=== PATIENT | female | born 1985 | race Two or more races ===

== ENCOUNTER 2024-08-24 18:31 | Emergency (ER) | payer MEDICAID, OTHER ==
[~2024-08-24] VITALS: Ht 154.9 cm; Wt 88.5 kg
[~2024-08-24 18:31] MED LIST: ALCOPAD62 XX; BLOO1KIT60 XX; INSLANTI SC; LANC-347 XX; METF-370 PO
[2024-08-24 19:54] LABS: Basophils # (auto) 0.1 10 ^3/uL (0-0.2); Basophils % (auto) 0.9 % (0.0-2.0); Eosinophils # (auto) 0.2 10 ^3/uL (0-0.8); Eosinophils % (auto) 2.4 % (0.0-7.0); Hematocrit 37.1 % (36.0-46.0); Lymphocytes % (auto) 24.5 % (10.0-50.0); Mean Corpuscular Hemoglobin 29.5 pg (28.0-32.0); Mean Corpuscular Hgb Conc. 35.1 g/dL (32.0-36.0); Mean Corpuscular Volume 84.1 fL (80.0-100.0); Monocytes # (auto) 0.4 10 ^3/uL (0-1.3); Neutrophils # (auto) 5.5 10 ^3/uL (1.6-8.6); Neutrophils % (auto) 67.2 % (37.0-80.0); Platelet Count (auto) 421 10^3/uL (140-450); Red Blood Cells 4.41 10^6/uL (4.0-5.20); Red Cell Distribution Width 12.6 % (11.8-14.3); White Blood Cell 8.2 10^3/uL (4.4-10.8)
[2024-08-24 19:57] LABS: Chloride 99 mmol/L (98-107); Potassium 4.1 mmol/L (3.5-5.1)
[2024-08-24 19:58] LABS: Anion Gap 6 (5-15); Calcium 9.4 mg/dL (8.7-10.4); Carbon Dioxide 27 mmol/L (20-31)
[2024-08-24 20:03] LABS: BUN/Creatinine Ratio 12.3 (10.0-20.0); Blood Urea Nitrogen 16 mg/dL (9-23)
[2024-08-24 20:04] LABS: Lipase 52 U/L (12-53)
[2024-08-24 20:06] LABS: Sodium 132 mmol/L (136-145)
[2024-08-24 20:09] LABS: Glucose 452 mg/dL (74-106)
--- NOTE | 2024-08-24 21:37 | DVH ---
CLINICAL HISTORY: Right-sided flank pain TECHNIQUE: CT of the abdomen and pelvis was performed without intravenous contrast. This exam was per formed according to our departmental dose optimization program. Up-to-date CT equipment and radiation dose reduction techniques are utilized as appropriate. CTDI: 13.24 DLP: 823 WID: COMPARISON: CT CT AB PEL WO CON-NO ORAL OR IV on DOS: 07/18/23 FINDINGS: Lower Thorax: Unremarkable. Liver and Biliary system: Mild hepatomegaly measuring 18 cm craniocaudal. Prior cholecystectomy witho ut biliary ductal dilatation. Spleen: Unremarkable. Adrenal Glands and Kidneys: There is a 2.5 cm left adrenal gland adenoma on series 2, image 33. Norm al right adrenal gland. Unremarkable kidneys apart from a small hypodense lesion in the upper pole le ft kidney not optimally evaluated without contrast. Pancreas and Retroperitoneum: Unremarkable. Aorta and Major Vessels: Aortoiliac vessels are normal in caliber containing mild calcified atheroscl erotic plaque. Bowel, Mesentery and Peritoneal space: Normal appendix. Normal caliber small and large bowel. No free air or fluid collection. Pelvis: Unremarkable. Abdominal wall and Osseous Structures: Tiny sclerotic foci in the proximal femurs and pelvis likely b one islands. No destructive osseous lesion. Mild lower thoracic and lumbar spondylosis. IMPRESSION: 1. No noncontrast evidence of acute abnormality. 2. Mild hepatomegaly. 3. Left adrenal gland adenoma.
--- NOTE | 2024-08-24 21:58 | ED.PDOC ---
General HPI Comments 38y morbidly obese F who presents to the ED for chief complaint of flank pain. Pt states she has been having R sided flank pain for the past 2 days. Pt states the pain is constant, non-radiating, with no associated exacerbating or relieving factors. Pt otherwise denies nausea, vomiting, dysuria, hematuria, fever, chills, or chills. Pt otherwise denies any other symptoms at this time. Pt denies history of kidney stones. Chief Complaint: Flank Pain Time Seen by MD: 21:30 Reviewed notes: Nurses Notes, Medications, Allergies Allergies: Coded Allergies: NO KNOWN ALLERGIES (Unverified , 07/18/23) Home Meds Active Scripts Insulin Glargine (Lantus) 100 Unit/Ml Inj, 15 UNIT SC DAILY for 30 Days, #30 INJ 2 Refills Prov:LIVE GARCIA RESIDENT 07/20/23 Isopropyl Alcohol (Alcohol Pads) 70 % Pad, % XX, #60 TO CLEAN WOUND Prov:LIVE GARCIA RESIDENT 07/20/23 Lancets (Freestyle Lancets) Lancets Mis, % XX BID, #60 ONE LANCET FOR EACH MEASURE Prov:LIVE GARCIA 07/20/23 Blood Glucose Monitoring Suppl (D-Care Glucometer Kit/Glu W/Device) 1 Kit Kit, KIT XX BID, #1 0 Refills BID Prov:LIVE GARCIA RESIDENT 07/20/23 Reported Medications Metformin Hydrochloride (Metformin Hcl) 500 Mg Tab, 500 MG PO IBID for 30 Days, MG 07/18/23 Information Source: Patient Mode of Arrival: Ambulatory Severity: Moderate Inability to void: None Timing: Days Duration: Since onset Prehospital treatment: None Onset: Spontaneous Symptoms: None History of: None Location: (R) Flank Past Medical History PAST MEDICAL HISTORY: Denies Surgical History: Cholecystectomy, [employer] History: Denies all [employer] Hx Family History Family History: Reviewed,noncontributory to illness Social History Smoker: Non-Smoker Alcohol: Denies ETOH Use Drugs: Denies Drug Use Lives In: Home Constitutional: denies: chills, diaphoresis, fatigue, fever, malaise, sweats, weakness, others EENTM: denies: blurred vision, double vision, ear bleeding, ear discharge, ear drainage, ear pain, ear ringing, eye pain, eye redness, hearing loss, mouth pain, mouth swelling, nasal discharge, nose bleeding, nose congestion, nose pain, photophobia, tearing, throat pain, throat swelling, voice changes, others Respiratory: denies: cough, hemoptysis, orthopnea, SOB at rest, shortness of breath, SOB with excertion, stridor, wheezing, others Cardiovascular: denies: chest pain, dizzy spells, diaphoresis, Dyspnea on exertion, edema, irregular heart beat, left arm pain, lightheadedness, palpitations, PND, syncope, others Gastrointestinal: denies: abdomen distended, abdominal pain, blood streaked bowels, constipated, diarrhea, dysphagia, difficulty swallowing, hematemesis, melena, nausea, poor appetite, poor fluid intake, rectal bleeding, rectal pain, vomiting, others Genitourinary: reports: flank pain; denies: abnormal vagina bleeding, burning, dyspareunia, dysuria, frequency, hematuria, incontinence, pain, , vagina discharge, urgency, others Neurological: denies: dizziness, fainting, headache, left sided numbness, left sided weakness, numbness, paresthesia, pre-existing deficit, right sided numbness, right sided weakness, seizure, speech problems, tingling, tremors, weakness, others Musculoskeletal: denies: back pain, gout, joint pain, joint swelling, muscle pain, muscle stiffness, neck pain, others Integumetry: denies: bruises, change in color, change in hair/nails, dryness, laceration, lesions, lumps, rash, wounds, others Allergic/Immunocompromised: denies: Difficulty Healing, Frequent Infections, Hives, Itching, others Hematologic/Lymphatic: denies: anemia, blood clots, easy bleeding, easy bruising, swollen glands, others Endocrine: denies: excessive hunger, excessive sweating, excessive thirst, excessive urination, flushing, intolerance to cold, intolerance to heat, unexplained weight gain, unexplained weight loss, others Psychiatric: denies: anxiety, bipolar disorder, depression, hopeless, panic disorder, schizophrenia, sleepless, suicidal, others All Other Systems: Reviewed and Negative Physical Exam General Appearance: Moderate Distress (Due to right-sided flank pain concerns.), Normal HEENT: Normal ENT Inspection, Pharynx Normal, TMs Normal Neck: Full Range of Motion, Non-Tender, Normal, Normal Inspection Respiratory: Chest Non-Tender, Lungs Clear, No Accessory Muscle Use, No Respiratory Distress, Normal Breath Sounds Cardiovascular: No Edema, No JVD, No Murmur, No Gallop, Normal Peripheral Pulses, Regular Rate/Rhythm Breast Exam: Deferred Gastrointestinal: Other (Mild CVA tenderness appreciated the right flank region. Patient states pain progresses into her abdomen. No signs of trauma. No pulsatile masses.) Genitalia: Deferred Pelvic: Deferred Rectal: Deferred Extremities: No calf tenderness, Normal capillary refill, Normal inspection, Normal range of motion, Non-tender, No pedal edema Neurologic: Alert, No Motor Deficits, Normal Affect, Normal Mood, No Sensory Deficits Cerebellar Function: Normal Reflexes: Normal Skin: Dry, Normal Color, Warm Lymphatic: No Adenopathy Was a procedure done? Was a procedure done?: No Differential Diagnosis Kidney stone (Female): Musculoskeletal pain, Strain, Urinary obstruction, Urolithiasis Urinary Problem (Female): Pyelonephritis, Urinary retention, UTI X-Ray, Labs, Meds, VS Vital Signs Date Time Temp Pulse Resp B/P (MAP) Pulse Ox O2 Delivery O2 Flow Rate FiO2 08/24/24 19:00 97.9 86 18 150/88 (108) 97 97.9 Lab Test 08/24/24 19:29 08/24/24 18:56 Range/Units White Blood Count 8.2 4.4-10.8 10^3/uL Red Blood Count 4.41 4.0-5.20 10^6/uL Hemoglobin 13.0 12.2-16.2 g/dL Hematocrit 37.1 36.0-46.0 % Mean Corpuscular Volume 84.1 80.0-100.0 fL Mean Corpuscular Hemoglobin 29.5 28.0-32.0 pg Mean Corpuscular Hemoglobin Concent 35.1 32.0-36.0 g/dL Red Cell Distribution Width 12.6 11.8-14.3 % Platelet Count 421 140-450 10^3/uL Mean Platelet Volume 8.1 6.9-10.8 fL Neutrophils (%) (Auto) 67.2 37.0-80.0 % Lymphocytes (%) (Auto) 24.5 10.0-50.0 % Monocytes (%) (Auto) 5.0 0.0-12.0 % Eosinophils (%) (Auto) 2.4 0.0-7.0 % Basophils (%) (Auto) 0.9 0.0-2.0 % Neutrophils # (Auto) 5.5 1.6-8.6 10 ^3/uL Lymphocytes # (Auto) 2.0 0.4-5.4 10 ^3/uL Monocytes # (Auto) 0.4 0-1.3 10 ^3/uL Eosinophils # (Auto) 0.2 0-0.8 10 ^3/uL Basophils # (Auto) 0.1 0-0.2 10 ^3/uL Nucleated Red Blood Cells 0.0 % Sodium Level 132 L 136-145 mmol/L Potassium Level 4.1 3.5-5.1 mmol/L Chloride Level 99 98-107 mmol/L Carbon Dioxide Level 27 20-31 mmol/L Anion Gap 6 5-15 Blood Urea Nitrogen 16 9-23 mg/dL Creatinine 1.30 H 0.550-1.02 mg/dL Glomerular Filtration Rate Calc 55 >90 mL/min BUN/Creatinine Ratio 12.3 10.0-20.0 Serum Glucose 452 *H 74-106 mg/dL Calcium Level 9.4 8.7-10.4 mg/dL Lipase 52 12-53 U/L Urine Color Light-yellow Yellow Urine Clarity Turbid H Clear Urine pH 6.5 5.0-9.0 Urine Specific [place] 1.031 1.001-1.035 Urine Protein 3+ H Negative Urine Ketones Negative Negative Urine Blood Trace H Negative /uL Urine Nitrite Negative Negative Urine Bilirubin Negative Negative Urine Urobilinogen Normal Negative mg/dL Urine Leukocyte Esterase Negative Negative /uL Urine RBC 7 0 - 4 /hpf Urine Microscopic WBC 13 H 0-5 /HPF Urine Squamous Epithelial Cells Mod <5 /hpf Urine Bacteria Mod H None Seen /hpf Urine Glucose 4+ H Normal mg/dL [place] [address] Ph: [phone] DIAGNOSTIC IMAGING Diagnostic Imaging Report : [id number] Signed PATIENT: MAGDALENA DANACCT: [id number] UNIT: [id number] : 1985 LOC: ER ROOM / BED: / AGE / SEX: 38 / F ADM STATUS: REG ER SERVICE 10 ORDERING PHYSICIAN: COREY POTTER PAC PROCEDURE(s): ABPL - CT AB PEL WO CON-NO ORAL OR IV REASON: Right-sided flank pain ORDER NUMBER(s): [id number], ACCESSION NUMBER(s): [id number] CLINICAL HISTORY: Right-sided flank pain TECHNIQUE: CT of the abdomen and pelvis was performed without intravenous contrast. This exam was performed according to our departmental dose optimization program. Up-to-date CT equipment and radiation dose reduction techniques are utilized as appropriate. CTDI: 13.24 DLP: 823 WID: COMPARISON: CT CT AB PEL WO CON-NO ORAL OR IV on DOS: 07/18/23 FINDINGS: Lower Thorax: Unremarkable. Liver and Biliary system: Mild hepatomegaly measuring 18 cm craniocaudal. Prior cholecystectomy without biliary ductal dilatation. Spleen: Unremarkable. Adrenal Glands and Kidneys: There is a 2.5 cm left adrenal gland adenoma on series 2, image 33. Normal right adrenal gland. Unremarkable kidneys apart from a small hypodense lesion in the upper pole left kidney not optimally evaluated without contrast. Pancreas and Retroperitoneum: Unremarkable. Aorta and Major Vessels: Aortoiliac vessels are normal in caliber containing mild calcified atherosclerotic plaque. Bowel, Mesentery and Peritoneal space: Normal appendix. Normal caliber small and large bowel. No free air or fluid collection. Pelvis: Unremarkable. Abdominal wall and Osseous Structures: Tiny sclerotic foci in the proximal femurs and pelvis likely bone islands. No destructive osseous lesion. Mild lower thoracic and lumbar spondylosis. IMPRESSION: 1. No noncontrast evidence of acute abnormality. 2. Mild hepatomegaly. 3. Left adrenal gland adenoma. ATED BY: JURGEN CAUSEY MD DICTATED DATE/TIME: 08/24/242134 SIGNED BY: JURGEN CAUSEY MD SIGNED DATE/TIME: 08/24/242134 CC: X-Ray, Labs, Meds, VS Comment All studies performed the ED were evaluated by me personally. Serum studies revealed a urinary tract infection as well as a significant hyperglycemic state due to poorly controlled diabetes. Imaging studies revealed a hepatomegaly without any other concerning findings intra-abdominally. Patient was given 1st dose of antibiotics as well as fluids and insulin prior to discharge. Advised patient follow up with the primary care provider for discussions related to improved diabetic management. Advised patient utilize antibiotics as directed until completion. Time of 1ST Reevaluation: 22:52 Reevaluation 1ST: Improved Consultation: PCP Patient Education/Counseling: Diagnosis, Treatment Family Education/Counseling: Diagnosis, Treatment, No Family Present Departure 1 Departure Time of Disposition: 22:53 Impression: Primary Impression: UTI (urinary tract infection) Additional Impressions: Hyperglycemia due to diabetes mellitus Hepatomegaly Disposition: HOME / SELF CARE / HOMELESS Condition: Stable Additional Instructions: Advised patient utilize antibiotics as directed until completion as well as pain medication as needed. Patient should follow up with the primary care provider for discussions related to today's visit as well as improved blood sugar management. e-Prescriptions Acetaminophen (Acetaminophen) 500 Mg Tab 500 MG PO Q4HP PRN, #30 TAB Prov: COREY POTTER PAC 08/24/24 Ibuprofen Micronized (Ibuprofen) 800 Mg Tab 800 MG PO Q8HP PRN, #20 TAB Prov: OCREY POTTER PAC 08/24/24 Nitrofurantoin Monohydrate Mac (Macrobid) 100 Mg Cap 100 MG PO BID for 7 Days, #14 CAP Prov: COREY POTTER PAC 08/24/24 Discharged With: Self, Friend Critical Care Note Critical Care Time?: No Stability Stability form required: No Heart Score Heart Score: Heart Score Response (Comments) Value History N/A 0 EKG N/A 0 Age N/A 0 Risk Factors N/A 0 Troponin N/A 0 Total 0 I personally scribed for COREY POTTER PAC ([email or web address]) on 08/24/24 at 21:58. Electronically submitted by Bronson LEBLANC). COREY POTTER PAC Aug 24, 2024 21:58
[2024-08-24 22:19] LABS: Urine Bacteria MOD /hpf (None Seen); Urine Blood TRACE /uL (Negative); Urine Clarity Turbid (Clear); Urine Color Light-Yellow (Yellow); Urine Protein, UAD 3+ (Negative); Urine Specific Gravity 1.031 (1.001-1.035); Urine Squamous Epithelial Cell MOD /hpf (<5); Urine Urobilinogen Normal (Negative); Urine WBC 13 /HPF (0-5); Urine pH 6.5 (5.0-9.0)
[2024-08-24] MEDS ORDERED: IBUP-1455 PO (22:54)
[2024-08-24] MEDS ORDERED: ACET500T58 PO (22:54)
[2024-08-24] MEDS ORDERED: NITR-87 PO (22:54)
[2024-08-25] MEDS: InsuLIN REG 1unit/0.01ml Soln (100units/ml) IV ONE (00:13)
[2024-08-25] MEDS: SODIUM CHLORIDE 0.9% 1,000 ML IV ONE (00:14)
[2024-08-25] MEDS: HYDROcodone-ACET 10/325MG TAB PO ONE (00:17)
[2024-08-25] MEDS: KETOROLAC TROMETH 60MG/2ML VIAL IM ONE (00:18)
[2024-08-25] MEDS: NITROFURANTOIN 100 mg CAP PO ONE (00:18)
[2024-08-25] MEDS ORDERED: cloNIDine 0.2 mg/24hr 7DAY PATCH TD ONE (01:00)
[2024-08-25] MEDS: cloNIDine HCL 0.1 MG TAB PO ONE (01:17)
[2024-08-25 01:50] VITALS: BP 157/87; PULSE 70; RESP 14; TEMP 98; O2SAT 98
== END 2024-08-25 02:06 | disposition home or self-care (01) ==
LOC: ER 18:31
DX: N39.0 Urinary tract infection, site not specified (principal); E11.65 Type 2 diabetes mellitus with hyperglycemia; R16.0 Hepatomegaly, not elsewhere classified; Z90.49 Acquired absence of other specified parts of digestive tract; Z79.4 Long term (current) use of insulin
CPT/HCPCS: 36415; 74176; 80048; 81001; 83690; 85025; 96372; 99285; J1885

== ENCOUNTER 2024-08-28 09:02 | Inpatient (IN) | payer OTHER ==
[~2024-08-28] VITALS: Ht 154.9 cm; Wt 85.8 kg
[~2024-08-28 09:02] MED LIST changes: +ACET500T58 PO; +IBUP-1455 PO; +NITR-87 PO
--- NOTE | 2024-08-28 09:36 | ED.PDOC ---
HPI Comments 38 y.o female presents to the ED for a chief complaint of High blood pressure associated with a generalized headache, nausea, vomiting and abdominal pain that started today. Patient reprots HTN was elevated for 2 days now, has been checking it since her discharge from the ED 4 days ago s/p UTI diagnose. Patient reports on her last visit she had elevated blood pressure, so when she picked up her antibiotics, she bought a blood pressure monitor. Patient has no history of HTN. No chest pain, fever, chills, diarrhea or vision change reported. BP upon ED arrival read 157/92 on right arm and 169/108 on right arm Chief Complaint: High Blood Pressure Time Seen by MD: 09:20 Primary Care Provider: NONE Reviewed Notes: Nurses Notes, Medications, Allergies Allergies: Coded Allergies: NO KNOWN ALLERGIES (Unverified , 07/18/23) Home Meds Active Scripts Acetaminophen (Acetaminophen) 500 Mg Tab, 500 MG PO Q4HP PRN, #30 TAB Prov:COREY POTTER PAC 08/24/24 Ibuprofen Micronized (Ibuprofen) 800 Mg Tab, 800 MG PO Q8HP PRN, #20 TAB Prov:COREY POTTER PAC 08/24/24 Nitrofurantoin Monohydrate Mac (Macrobid) 100 Mg Cap, 100 MG PO BID for 7 Days, #14 CAP Prov:COREY POTTER PAC 08/24/24 Insulin Glargine (Lantus) 100 Unit/Ml Inj, 15 UNIT SC DAILY for 30 Days, #30 INJ 2 Refills Prov:LIVE GARCIA 07/20/23 Isopropyl Alcohol (Alcohol Pads) 70 % Pad, % XX, #60 TO CLEAN WOUND Prov:LIVE GARCIA 07/20/23 Lancets (Freestyle Lancets) Lancets Mis, % XX BID, #60 ONE LANCET FOR EACH MEASURE Prov:LIVE GARCIA 07/20/23 Blood Glucose Monitoring Suppl (D-Care Glucometer Kit/Glu W/Device) 1 Kit Kit, KIT XX BID, #1 0 Refills BID Prov:LIVE GARCIA 07/20/23 Reported Medications Metformin Hydrochloride (Metformin Hcl) 500 Mg Tab, 500 MG PO IBID for 30 Days, MG 07/18/23 Information Source: Patient Mode of Arrival: Ambulatory Severity: Moderate Timing: Hours Duration: Since onset Onset: At Rest Cardiac Risk Factors: None PE Risk Factors: None History of: None Modifying Factors: Nothing Associated Signs and Symptoms: Abdominal Pain, N/V Past Medical History PAST MEDICAL HISTORY: Denies Surgical History: Cholecystectomy, [employer] History: Denies all [employer] Hx Family History Family History: Reviewed,noncontributory to illness Social History Smoker: Non-Smoker Alcohol: Denies ETOH Use Drugs: Denies Drug Use Lives In: Home Constitutional: denies: chills, diaphoresis, fatigue, fever, malaise, sweats, weakness, others EENTM: denies: blurred vision, double vision, ear bleeding, ear discharge, ear drainage, ear pain, ear ringing, eye pain, eye redness, hearing loss, mouth pain, mouth swelling, nasal discharge, nose bleeding, nose congestion, nose pain, photophobia, tearing, throat pain, throat swelling, voice changes, others Respiratory: denies: cough, hemoptysis, orthopnea, SOB at rest, shortness of breath, SOB with excertion, stridor, wheezing, others Cardiovascular: denies: chest pain, dizzy spells, diaphoresis, Dyspnea on exertion, edema, irregular heart beat, left arm pain, lightheadedness, palpitations, PND, syncope, others Gastrointestinal: reports: abdominal pain, nausea, vomiting; denies: abdomen distended, blood streaked bowels, constipated, diarrhea, dysphagia, difficulty swallowing, hematemesis, melena, poor appetite, poor fluid intake, rectal bleeding, rectal pain, others Genitourinary: denies: abnormal vagina bleeding, burning, dyspareunia, dysuria, flank pain, frequency, hematuria, incontinence, pain, , vagina discharge, urgency, others Neurological: reports: headache; denies: dizziness, fainting, left sided numbness, left sided weakness, numbness, paresthesia, pre-existing deficit, right sided numbness, right sided weakness, seizure, speech problems, tingling, tremors, weakness, others Musculoskeletal: denies: back pain, gout, joint pain, joint swelling, muscle pain, muscle stiffness, neck pain, others Integumetry: denies: bruises, change in color, change in hair/nails, dryness, laceration, lesions, lumps, rash, wounds, others Allergic/Immunocompromised: denies: Difficulty Healing, Frequent Infections, Hives, Itching, others Hematologic/Lymphatic: denies: anemia, blood clots, easy bleeding, easy bruising, swollen glands, others Endocrine: denies: excessive hunger, excessive sweating, excessive thirst, excessive urination, flushing, intolerance to cold, intolerance to heat, unexp lained weight gain, unexplained weight loss, others Psychiatric: denies: anxiety, bipolar disorder, depression, hopeless, panic disorder, schizophrenia, sleepless, suicidal, others All Other Systems: Reviewed and Negative Physical Exam General Appearance: No Apparent Distress, Normal HEENT: NOT DONE Neck: Normal Inspection Respiratory: No Accessory Muscle Use, No Respiratory Distress, Normal Breath Sounds Cardiovascular: Normal Peripheral Pulses, Regular Rate/Rhythm Breast Exam: Deferred Gastrointestinal: NOT DONE Genitalia: Deferred Pelvic: Deferred Rectal: Deferred Extremities: Normal inspection Neurologic: Alert, Normal Affect, Normal Mood Cerebellar Function: Normal Reflexes: NOT DONE Skin: Dry, Normal Color Lymphatic: NOT DONE Was a procedure done? Was a procedure done?: No CP Differential Dx Differential Diagnosis: N/A Differential Diagnosis: HTN Essential, HTN Accelerated X-Ray, Labs, Meds, VS Vital Signs Date Time Temp Pulse Resp B/P (MAP) Pulse Ox O2 Delivery O2 Flow Rate FiO2 08/28/24 09:08 97.9 84 18 169/108 (128) 96 97.9 157/92 (113) Lab Test 08/28/24 11:00 08/28/24 10:29 08/28/24 09:34 Range/Units Urine Color Light-yellow Yellow Urine Clarity Clear Clear Urine pH 6.5 5.0-9.0 Urine Specific [place] 1.022 1.001-1.035 Urine Protein 3+ H Negative Urine Ketones Negative Negative Urine Blood 1+ H Negative /uL Urine Nitrite Negative Negative Urine Bilirubin Negative Negative Urine Urobilinogen Normal Negative mg/dL Urine Leukocyte Esterase Negative Negative /uL Urine RBC 4 0 - 4 /hpf Urine Microscopic WBC 4 0-5 /HPF Urine Squamous Epithelial Cells Few <5 /hpf Urine Bacteria None seen None Seen /hpf Urine Mucus Few None Seen Urine Glucose 4+ H Normal mg/dL Troponin I High Sensitivity 11 8 </=34 ng/L White Blood Count 10.7 # 4.4-10.8 10^3/uL Red Blood Count 4.64 4.0-5.20 10^6/uL Hemoglobin 13.7 12.2-16.2 g/dL Hematocrit 38.6 36.0-46.0 % Mean Corpuscular Volume 83.2 80.0-100.0 fL Mean Corpuscular Hemoglobin 29.4 28.0-32.0 pg Mean Corpuscular Hemoglobin Concent 35.4 32.0-36.0 g/dL Red Cell Distribution Width 12.2 11.8-14.3 % Platelet Count 432 140-450 10^3/uL Mean Platelet Volume 8.1 6.9-10.8 fL Neutrophils (%) (Auto) 78.9 37.0-80.0 % Lymphocytes (%) (Auto) 13.6 10.0-50.0 % Monocytes (%) (Auto) 4.3 0.0-12.0 % Eosinophils (%) (Auto) 2.5 0.0-7.0 % Basophils (%) (Auto) 0.7 0.0-2.0 % Neutrophils # (Auto) 8.4 1.6-8.6 10 ^3/uL Lymphocytes # (Auto) 1.5 0.4-5.4 10 ^3/uL Monocytes # (Auto) 0.5 0-1.3 10 ^3/uL Eosinophils # (Auto) 0.3 0-0.8 10 ^3/uL Basophils # (Auto) 0.1 0-0.2 10 ^3/uL Nucleated Red Blood Cells 0.0 % Sodium Level 134 L 136-145 mmol/L Potassium Level 3.9 3.5-5.1 mmol/L Chloride Level 99 98-107 mmol/L Carbon Dioxide Level 27 20-31 mmol/L Anion Gap 8 5-15 Blood Urea Nitrogen 17 9-23 mg/dL Creatinine 1.13 H 0.550-1.02 mg/dL Glomerular Filtration Rate Calc 65 >90 mL/min BUN/Creatinine Ratio 15.0 10.0-20.0 Serum Glucose 341 H 74-106 mg/dL Calcium Level 9.4 8.7-10.4 mg/dL Clinical statement: htn, dizziness Study: CT Head without contrast CT radiation dose protocol performed in accordance with principles of ALARA. Comparison: None Ordering physician: JOHANA RICHMOND Findings: The posterior fossa, brain stem and cerebellum are normal. Ventricles and subarachnoid spaces are normal and symmetric. Gonzalez white differentiation is normal. White matter is unremarkable. There is no acute infarction, shift, hemorrhage, herniation or mass. The orbital soft tissues, paranasal sinuses, mastoid air cells and osseous structures are normal. No fracture or destructive lesion is seen. Impression: 1. No acute intracranial abnormality. End of impression. HS: Y Location Code: [facility] Time of 1ST Reevaluation: 09:31 Reevaluation 1ST: Unchanged Patient Education/Counseling: Diagnosis, Treatment Family Education/Counseling: No Family Present Departure 1 Departure Time of Disposition: 12:30 (Patient presented with hypertension and symptoms concerning for hypertensive emergency. Patient is receiving iv blood pressure medications requiring intensive monitoring. Data: 1. I ordered and reviewed the result of at least 3 labs including a CBC, BMP, and Urinalysis. 2. I independently interpreted the following tests: CT Brain: Which appears benign. EKG which is Normal Sinus RhythmRisk:This patient has a high risk of morbidity due to further diagnostic testing or treatment and may suffer from an acute cardiac disorder. Workup reveals hypertensive emergency and patient should be admitted for further workup. and possible expert consultation. ) Impression: Primary Impression: Hypertensive emergency Additional Impressions: Acute chest pain Paresthesias Disposition: ADMITTED INPATIENT Admit to: Med Surg Condition: Serious Critical Care Note Critical Care Time?: Yes Critical care comment: Hypertensive emergency Authorized and Performed by: Johana Richmond MD Total critical care time: Approximately 37 minutes Due to a high probability of clinically significant, life threatening deterioration, the patient required my highest level of preparedness to intervene emergently and I personally spent this critical care time directly and personally managing the patient. This critical care time included obtaining a history; examining the patient; pulse oximetry; ordering and review of studies; arranging urgent treatment with development of a management plan; evaluation of patient's response to treatment; frequent reassessment; and, discussions with other providers. This critical care time was performed to assess and manage the high probability of imminent, life-threatening deterioration that could result in multi-organ failure. It was exclusive of separately billable procedures and treating other patients and teaching time. Please see my other sections and the rest of the note for further information on patient assessment and treatment. Stability Stability form required: No I personally scribed for JOHANA RICHMOND MD ([facility]) on 08/28/24 at 09:36. Electronically submitted by Viri Wleler ([facility]). I personally scribed for JOHANA RICHMOND MD ([facility]) on 08/28/24 at 11:31. Electronically submitted by Viri Weller ([facility]). JOHANA RICHMOND MD Aug 28, 2024 09:36
[2024-08-28 09:52] LABS: Chloride 99 mmol/L (98-107); Potassium 3.9 mmol/L (3.5-5.1)
[2024-08-28 09:53] LABS: Anion Gap 8 (5-15); Carbon Dioxide 27 mmol/L (20-31)
[2024-08-28 09:54] LABS: Calcium 9.4 mg/dL (8.7-10.4)
--- NOTE | 2024-08-28 09:54 | DVH ---
Clinical statement: htn, dizziness Study: CT Head without contrast CT radiation dose protocol performed in accordance with principles of ALARA. Comparison: None Ordering physician: JOHANA RICHMOND Findings: The posterior fossa, brain stem and cerebellum are normal. Ventricles and subarachnoid spaces are normal and symmetric. Gonzalez white differentiation is normal. White matter is unremarkable. There is no acute infarction, shift, hemorrhage, herniation or mass. The orbital soft tissues, paranasal sinuses, mastoid air cells and osseous structures are normal. No fracture or destructive lesion is seen. Impression: 1. No acute intracranial abnormality. End of impression. HS: Y Location Code: [facility]
[2024-08-28 09:57] LABS: Basophils # (auto) 0.1 10 ^3/uL (0-0.2); Basophils % (auto) 0.7 % (0.0-2.0); Eosinophils # (auto) 0.3 10 ^3/uL (0-0.8); Eosinophils % (auto) 2.5 % (0.0-7.0); Hematocrit 38.6 % (36.0-46.0); Hemoglobin 13.7 g/dL (12.2-16.2); Lymphocytes # (auto) 1.5 10 ^3/uL (0.4-5.4); Lymphocytes % (auto) 13.6 % (10.0-50.0); Mean Corpuscular Hemoglobin 29.4 pg (28.0-32.0); Mean Corpuscular Hgb Conc. 35.4 g/dL (32.0-36.0); Mean Corpuscular Volume 83.2 fL (80.0-100.0); Monocytes # (auto) 0.5 10 ^3/uL (0-1.3); Monocytes % (auto) 4.3 % (0.0-12.0); Neutrophils # (auto) 8.4 10 ^3/uL (1.6-8.6); Neutrophils % (auto) 78.9 % (37.0-80.0); Platelet Count (auto) 432 10^3/uL (140-450); Red Blood Cells 4.64 10^6/uL (4.0-5.20); Red Cell Distribution Width 12.2 % (11.8-14.3); White Blood Cell 10.7 10^3/uL (4.4-10.8)
[2024-08-28 09:58] LABS: Blood Urea Nitrogen 17 mg/dL (9-23)
--- NOTE | 2024-08-28 09:58 | DVH ---
CHEST RADIOGRAPH Indication: htn, dizziness Technique: Single frontal view of the chest was obtained Comparison: None FINDINGS: Lines and Tubes: None Lungs: No focal consolidation. Pleura: No effusion. No pneumothorax. Cardiomediastinal contours: Unremarkable Bones: No acute osseous abnormality. IMPRESSION: 1. No acute cardiopulmonary disease.
[2024-08-28 10:01] LABS: Glucose 341 mg/dL (74-106); Sodium 134 mmol/L (136-145)
[2024-08-28 11:48] LABS: Urine Bacteria None Seen /hpf (None Seen)
[2024-08-28 12:07] LABS: Urine Blood 1+ /uL (Negative); Urine Clarity Clear (Clear); Urine Color Light-Yellow (Yellow); Urine Mucus FEW (None Seen); Urine Protein, UAD 3+ (Negative); Urine Specific Gravity 1.022 (1.001-1.035); Urine Squamous Epithelial Cell FEW /hpf (<5); Urine Urobilinogen Normal (Negative); Urine WBC 4 /HPF (0-5); Urine pH 6.5 (5.0-9.0)
[2024-08-28] MEDS ORDERED: ACETAMINOPHEN 325 MG TAB PO PRN (13:45)
[2024-08-28] MEDS ORDERED: DEXTROSE (50%) 50ML SYRG IV PRN (13:45)
[2024-08-28] MEDS ORDERED: ONDANSETRON HCL 4 MG/2 ML VIAL IV PRN (13:45)
[2024-08-28] MEDS ORDERED: DOCUSATE SOD 100 MG CAP PO PRN (13:45)
[2024-08-28] MEDS ORDERED: HYDROcodone-ACET 5/325MG TAB PO PRN (13:45)
[2024-08-28] MEDS ORDERED: NITROGLYCERIN 0.4 MG SL TAB SL PRN (13:45)
[2024-08-28] MEDS ORDERED: MORPHINE SULFATE INJ 2 MG/ml SYRG IV PRN (13:45)
[2024-08-28 14:03] VITALS: PULSE 71; RESP 16; TEMP 98.7; O2SAT 96
[2024-08-28] MEDS: amLODIPine BESYLATE 5 MG TAB PO ONE (14:14)
[2024-08-28] MEDS: SODIUM CHLOR 0.9% PF (SALINE LOCK) 10ML VIAL/SYR IV SCH (14:15)
[2024-08-28] MEDS: hydrALAZINE HCL 20 MG/ML VL IV ONE (14:15)
--- NOTE | 2024-08-28 14:38 | DVHHP2 ---
History of Present Illness Reason for Visit: Hypertension History of Present Illness Jane Hughes is a 38-year-old female with past medical history of diabetes who came in for hypertension. Patient states that she began feeling weird last night. She had a headache and was lightheaded. Her blood pressure and it was very elevated with SBP in the 200s. This morning she woke up feeling the same, her blood pressure remained in the 200s. She began to feel nauseated and vomited and then came to the ER. Patient's blood pressure was elevated on arrival to ER. Her blood sugar is also elevated. Patient was seen in the ER last week for UTI, while she was here her blood pressure was elevated, and her blood sugars were elevated, her HA1c was 12.5 in July of 2024. Patient states she has been out of her metformin. Endocrine: Diabetes Past Surgical History: Cholecystectomy, (x 2) Family History: None Smoke: No ALCOHOL: none Drugs: None Lives: with Family Domestic Violence: Neg Review of Systems Constitutional: Yes: Other (Headache); No: Fever, Chills, Sweats, Weakness, Malaise Eyes: No: Pain, Vision change, Conjunctivae inflammation, Eyelid inflammation, Other, Redness ENT: No: Ear pain, Ear discharge, Nose pain, Nose discharge, Nose congestion, Mouth pain, Mouth swelling, Throat pain, Throat swelling, Other Respiratory: No: Cough, Dry, Shortness of breath, SOB with excertion, Wheezing, Hemoptysis, Pleuritic Pain, Sputum, Wheezing, Other Cardiovascular: No: Chest Pain, Palpitations, Orthopnea, Paroxysmal Noc. Dy spnea, Edema, Lt Headedness, Other Gastrointestinal: Nausea, Vomiting, Abdominal Pain; No: Diarrhea, Constipation, Melena, Hematochezia, Other Genitourinary: No Dysuria, No Frequency, No Incontinence, No Hematuria, No Retention, No Other Musculoskeletal: No: other, neck pain, shoulder pain, arm pain, back pain, hand pain, leg pain, foot pain Skin: No: Rash, Lesions, Jaundice, Bruising, Other Neurological: No: Weakness, Numbness, Incoordination, Change in speech, Confusion, Seizures, Other Allergies: Coded Allergies: NO KNOWN ALLERGIES (Unverified , 07/18/23) Medications Current Medications Medications Dose Ordered Sig/Elisabeth Route Start Time Stop Time Status Last Admin Dose Admin Nitrofurantoin Macrocrystals 100 mg BID PO 08/28/24 22:00 UNV Sodium Chloride 10 ml Q8HR IV 08/28/24 14:00 UNV Acetaminophen/ Hydrocodone Bitart 1 tab Q4HP PRN PO 08/28/24 13:45 UNV Ondansetron HCl 4 mg Q4HP PRN IV 08/28/24 13:45 UNV Docusate Sodium 100 mg BIDPRN PRN PO 08/28/24 13:45 UNV Acetaminophen 650 mg Q6HP PRN PO 08/28/24 13:45 UNV Nitroglycerin 0.4 mg Q5MINP PRN SL 08/28/24 13:45 UNV Morphine Sulfate 2 mg Q30M PRN IV 08/28/24 13:45 UNV Diagnostic Test (Pha) 1 strip ACHS 08/28/24 17:00 UNV Insulin Human Regular HS SC 08/28/24 22:00 UNV Insulin Human Regular AC SC 08/28/24 17:00 UNV Dextrose 50 ml UD PRN IV 08/28/24 13:45 UNV Insulin Glargine 10 units HS SC 08/28/24 22:00 UNV Exam Vital Signs Vital Signs Date Time Temp Pulse Resp B/P (MAP) Pulse Ox O2 Delivery O2 Flow Rate FiO2 08/28/24 09:08 97.9 84 18 169/108 (128) 96 97.9 157/92 (113) General Appearance: Alert, Oriented X3, Cooperative, mild distress HEENT: Atraumatic, PERRLA Respiratory: Clear to auscultation, Normal air movement Cardiovascular: Regular rate, Normal S1, Normal S2, No murmurs Abdominal: Normal bowel sounds, Soft, No tenderness, No hepatospenomegaly Extremities: No clubbing, No cyanosis, No edema, Normal pulses Skin: No rashes, No breakdown, No significant lesion Neuro: Normal gait, Normal speech, Strength at 5/5 X4 ext Psych/Mental Status: Mental status NL, Mood NL Labs/Xrays Labs Test 08/28/24 12:43 08/28/24 11:00 08/28/24 09:34 Range/Units Troponin I High Sensitivity 10 </=34 ng/L Urine Color Light-yellow Yellow Urine Clarity Clear Clear Urine pH 6.5 5.0-9.0 Urine Specific [place] 1.022 1.001-1.035 Urine Protein 3+ H Negative Urine Ketones Negative Negative Urine Blood 1+ H Negative /uL Urine Nitrite Negative Negative Urine Bilirubin Negative Negative Urine Urobilinogen Normal Negative mg/dL Urine Leukocyte Esterase Negative Negative /uL Urine RBC 4 0 - 4 /hpf Urine Microscopic WBC 4 0-5 /HPF Urine Squamous Epithelial Cells Few <5 /hpf Urine Bacteria None seen None Seen /hpf Urine Mucus Few None Seen Urine Glucose 4+ H Normal mg/dL White Blood Count 10.7 # 4.4-10.8 10^3/uL Red Blood Count 4.64 4.0-5.20 10^6/uL Hemoglobin 13.7 12.2-16.2 g/dL Hematocrit 38.6 36.0-46.0 % Mean Corpuscular Volume 83.2 80.0-100.0 fL Mean Corpuscular Hemoglobin 29.4 28.0-32.0 pg Mean Corpuscular Hemoglobin Concent 35.4 32.0-36.0 g/dL Red Cell Distribution Width 12.2 11.8-14.3 % Platelet Count 432 140-450 10^3/uL Mean Platelet Volume 8.1 6.9-10.8 fL Neutrophils (%) (Auto) 78.9 37.0-80.0 % Lymphocytes (%) (Auto) 13.6 10.0-50.0 % Monocytes (%) (Auto) 4.3 0.0-12.0 % Eosinophils (%) (Auto) 2.5 0.0-7.0 % Basophils (%) (Auto) 0.7 0.0-2.0 % Neutrophils # (Auto) 8.4 1.6-8.6 10 ^3/uL Lymphocytes # (Auto) 1.5 0.4-5.4 10 ^3/uL Monocytes # (Auto) 0.5 0-1.3 10 ^3/uL Eosinophils # (Auto) 0.3 0-0.8 10 ^3/uL Basophils # (Auto) 0.1 0-0.2 10 ^3/uL Nucleated Red Blood Cells 0.0 % Sodium Level 134 L 136-145 mmol/L Potassium Level 3.9 3.5-5.1 mmol/L Chloride Level 99 98-107 mmol/L Carbon Dioxide Level 27 20-31 mmol/L Anion Gap 8 5-15 Blood Urea Nitrogen 17 9-23 mg/dL Creatinine 1.13 H 0.550-1.02 mg/dL Glomerular Filtration Rate Calc 65 >90 mL/min BUN/Creatinine Ratio 15.0 10.0-20.0 Serum Glucose 341 H 74-106 mg/dL Calcium Level 9.4 8.7-10.4 mg/dL CHEST RADIOGRAPH FINDINGS: Lines and Tubes: None Lungs: No focal consolidation. Pleura: No effusion. No pneumothorax. Cardiomediastinal contours: Unremarkable Bones: No acute osseous abnormality. IMPRESSION: 1. No acute cardiopulmonary disease. Study: CT Head without contrast Findings: The posterior fossa, brain stem and cerebellum are normal. Ventricles and subarachnoid spaces are normal and symmetric. Gonzalez white differentiation is normal. White matter is unremarkable. There is no acute infarction, shift, hemorrhage, herniation or mass. The orbital soft tissues, paranasal sinuses, mastoid air cells and osseous structures are normal. No fracture or destructive lesion is seen. Impression: 1. No acute intracranial abnormality. End of impression. Assessment/Plan Assessment/Plan Assessment: Hypertensive emergency, Hyperglycemia, Hypokalemia, Uncontrolled Diabetes, Plan: Admit to Tele, Antihypertensives, Start Lantus, Accu checks Q AC&HS with sliding scale, Home medications reconciled, Plan discussed with: Patient My Orders Orders - FRIDA GARZA Procedure Category Date Status Time Nitrofurantoin PHA 08/28/24 Logged Capsule (Macrobid) 22:00 Admit ADMIT 08/28/24 Transmitted 13:38 Code Status CODE 08/28/24 Transmitted 13:38 2 Gm Sodium Diet DIET 08/28/24 Transmitted Dinner Sodium Chloride Lock PHA 08/28/24 Logged (Saline Lock Ns) 14:00 Hydrocodone-Acet PHA 08/28/24 Logged 5/325mg Tab ([place] 13:45 Ondansetron Hcl PHA 08/28/24 Logged (Zofran) 13:45 Docusate Sodium PHA 08/28/24 Logged Capsule (Colace 13:45 Complete Blood Count LAB 08/29/24 Verified 04:00 Comprehensive LAB 08/29/24 Verified Metabolic Panel 04:00 Condition: Serious HUNG 08/28/24 In Process 13:38 Acetaminophen Tablet PHA 08/28/24 Logged (Tylenol Tablet) 13:45 Nitroglycerin PHA 08/28/24 Logged Sublingual (Ntrostat 13:45 Morphine Sulfate PHA 08/28/24 Logged Injection 13:45 Stat Ekg For Chest [facility] 08/28/24 In Process Pain 13:38 Notify Of Changes [facility] 08/28/24 In Process From Base 13:38 Cafe Or Restaurant Manager For [facility] 08/28/24 In Process 24 Hours 13:38 Emergency Dysrhythmia [facility] 08/28/24 In Process Protocol 13:38 Rhythm Strips Once [facility] 08/28/24 In Process Every Shift 13:38 Oxygen By Nasal RT 08/28/24 Transmitted Cannula 13:38 Glucose Blood PHA 08/28/24 Logged (Accu-Chek Comfort 17:00 Insulin R (Human) PHA 08/28/24 Logged (Insulin R) 22:00 Insulin R (Human) PHA 08/28/24 Logged (Insulin R) 17:00 Dextrose 50% Syringe PHA 08/28/24 Logged 13:45 Insulin Lantus PHA 08/28/24 Logged (Glargine) (Lantus) 22:00 Date of Service: Aug 28, 2024 Billing Provider: FRIDA GARZA Common Visit Codes: [id number] INP/OBS CARE (MOD) FRIDA GARZA Aug 28, 2024 14:38
[2024-08-28 15:55] VITALS: BP 157/86; PULSE 84; RESP 18; O2SAT 97
[2024-08-28] MEDS ORDERED: ACCU-CHEK COMFORT CURVE STRIP VI SCH (17:00)
[2024-08-28] MEDS ORDERED: InsuLIN REG 1unit/0.01ml Soln (100units/ml) SC SCH ×2 (17:00→22:00)
[2024-08-28] MEDS ORDERED: hydrALAZINE HCL 20 MG/ML VL IV SCH (18:00)
[2024-08-28] MEDS ORDERED: INSULIN LANTUS (GLARGINE) 1 /0.01ml (100units/ml) SC SCH (22:00)
[2024-08-28] MEDS ORDERED: NITROFURANTOIN 100 mg CAP PO SCH (22:00)
[2024-08-29] MEDS ORDERED: amLODIPine BESYLATE 5 MG TAB PO SCH (10:00)
== END 2024-08-28 15:57 | disposition left against medical advice (07) | DRG 199 ==
LOC: ER 09:02 → OVERFLOW 13:38
PROVIDERS: ADMIT Nurse Practitioner Family; ATTEND Nurse Practitioner Family
DX: I16.1 Hypertensive emergency (principal); E11.65 Type 2 diabetes mellitus with hyperglycemia; E87.6 Hypokalemia; I10 Essential (primary) hypertension; R20.2 Paresthesia of skin; Z53.29 Procedure and treatment not carried out because of patient's decision for other reasons; Z79.4 Long term (current) use of insulin; Z79.899 Other long term (current) drug therapy; Z79.84 Long term (current) use of oral hypoglycemic drugs
CPT/HCPCS: 36415; 70450; 71045; 80048; 81001; 84484; 85025; 96374; 96375; 99291; G0378